=== PATIENT | male | born 1965 | race African-American/Black ===

== ENCOUNTER 2018-03-12 23:09 | Emergency (ER) | payer OTHER ==
[2018-03-13] MEDS ORDERED: DIAZEPAM 2 MG TABLET ONE (00:19)
--- NOTE | 2018-03-13 00:24 | ER ---
Nurse's Notes [facility] Name: Abhi Blankenship Age: 52 yrs Sex: Male : 1965 Arrival Date: 03/12/2018 Time: 23:15 Bed 16 Private MD: Earnest Forrest H Diagnosis: Radiculopathy, cervical region Presentation: 03/12 23:25 Presenting complaint: Patient states: Left shoulder pain for the past two days. Pain ao radiates down to the left hand. Patient also report numbness in the left hand. Patient denies nausea and vomiting. Transition of care: patient was not received from another setting of care. Onset of symptoms was March 10, 2018. Risk Assessment: Do you want to hurt yourself or someone else? Patient reports no desire to harm self or others. Initial Sepsis Screen: Does the patient meet any 2 criteria? No. Patient's initial sepsis screen is negative. Does the patient have a suspected source of infection? No. Patient's initial sepsis screen is negative. Care prior to arrival: None. 23:25 Method Of Arrival: Ambulatory ao 23:25 Acuity: JOAQUIN 4 ao Triage Assessment: 23:31 General: Appears in no apparent distress. comfortable, Behavior is calm, cooperative, ao appropriate for age. Pain: Complains of pain in left shoulder pain Pain radiates to left hand Pain currently is 7 out of 10 on a pain scale. Historical: - Allergies: 23:29 No Known Allergies; ao - Home Meds: 23:29 Metformin Oral [Active]; Glipizide Oral [Active]; atorvastatin oral oral [Active]; ao Zetia Oral [Active]; - PMHx: 23:29 Diabetes - NIDDM; Hyperlipidemia; ao - PSHx: 23:29 Knee surgery; ao - Immunization history:: Adult Immunizations up to date. - Social history:: Smoking status: Patient/guardian denies using tobacco, Patient uses alcohol, occasionally. Patient/guardian denies using street drugs, IV drugs. - Ebola Screening: : Patient negative for fever greater than or equal to 101.5 degrees Fahrenheit, and additional compatible Ebola Virus Disease symptoms Patient denies exposure to infectious person Patient denies travel to an Ebola-affected area in the 21 days before illness onset. Screenin:30 Abuse screen: Denies threats or abuse. Denies injuries from another. Nutritional ao screening: No deficits noted. Tuberculosis screening: No symptoms or risk factors identified. Fall Risk None identified. Assessment: 23:38 General: Appears in no apparent distress. comfortable, Behavior is calm, cooperative, ao appropriate for age. Pain: Complains of pain in Left shoulder radiating down to the left hand Pain currently is 7 out of 10 on a pain scale. Neuro: Level of Consciousness is awake, alert, obeys commands, Oriented to person, place, time, situation, Appropriate for age Moves all extremities. Full function Speech is normal, Facial symmetry appears normal. Cardiovascular: Reports None Denies chest pain, nausea, shortness of breath, vomiting. Respiratory: Airway is patent Respiratory effort is even, unlabored, Respiratory pattern is regular, symmetrical. GI: Abdomen is obese. : No signs and/or symptoms were reported regarding the genitourinary system. EENT: No signs and/or symptoms were reported regarding the EENT system. Derm: Skin is intact, Skin is normal, Skin temperature is warm. Musculoskeletal: Reports numbness in left hand pain in left shoulder. 03/13 00:23 Reassessment: Patient appears in no apparent distress at this time. Patient and/or jb4 family updated on plan of care and expected duration. Pain level reassessed. Patient is alert, oriented x 3, equal unlabored respirations, skin warm/dry/pink. Patient states feeling better. 00:34 Reassessment: Patient appears in no apparent distress at this time. Patient and/or jb4 family updated on plan of care and expected duration. Pain level reassessed. Patient is alert, oriented x 3, equal unlabored respirations, skin warm/dry/pink. Discussed D/c, F/u with pt and , denies questions or concerns at this time. Vital Signs: 03/12 23:26 BP 156 / 90; Pulse 79; Resp 18; Temp 98.3; Pulse Ox 99% on R/A; Weight 134.72 kg (R); ao Height 5 ft. 11 in. (180.34 cm) (R); Pain 12/10; 03/13 00:00 BP 135 / 86; Pulse 86; Resp 18; Pulse Ox 100% on R/A; jb4 03/12 23:26 Body Mass Index 41.42 (134.72 kg, 180.34 cm) ao ED Course: 03/12 23:15 Patient arrived in ED. es 23:16 Earnest Forrest DO is Private Physician. es 23:23 [facility]C [facility] snw 23:23 Jasvir Roberts MD is Attending Physician. snw 23:25 Sean Bustamante, RN is Primary Nurse. jb4 23:26 Triage completed. ao 23:27 Arm band placed on right wrist. Patient placed in an exam room, on a stretcher, on ao pulse oximetry, Patient notified of wait time. 23:30 Patient has correct armband on for positive identification. Pulse ox on. NIBP on. ao 23:48 EKG done, by ED staff, reviewed by Lily CAMARILLO. jb4 03/13 00:00 CT Head C Spine In Process Unspecified. EDMS 00:01 CT completed. Patient tolerated procedure well. Patient moved to CT via wheelchair. Patient moved back from CT. 00:24 Earnest Forrest DO is Referral Physician. snw 00:35 No provider procedures requiring assistance completed. Patient did not have IV access jb4 during this emergency room visit. Administered Medications: 00:18 Not Given (Patient Refused): Pingree 5 mg-325 mg 1 tabs PO once jb4 00:18 Drug: Valium 2 mg Route: PO; jb4 00:25 Follow up: Response: No adverse reaction; Pain is decreased; Anxiety decreased jb4 Point of Care Testing: Blood Glucose: 03/12 23:38 Blood Glucose: 120 mg/dL; ao Ranges: Outcome: 03/13 00:24 Discharge ordered by . snw 00:35 Discharged to home ambulatory. jb4 00:35 Condition: stable 00:35 Discharge instructions given to patient, family, Instructed on discharge instructions, follow up and referral plans. medication usage, Demonstrated understanding of instructions, follow-up care, medications, Prescriptions given X 2. 00:36 Patient left the ED. jb4 Signatures: Dispatcher [employer] EDID Lily Hopkins FNP-C FNP-Marjorie Doll Ervin eh Ortiz, Alex, RN RN ao Sean Bustamante, RN RN jb4
--- NOTE | 2018-03-13 00:25 | EDPHYS ---
Physician Documentation [facility] Name: Abhi lBankenship Age: 52 yrs Sex: Male : 1965 Arrival Date: 03/12/2018 Time: 23:15 Bed 16 Private MD: Earnest Forrest H ED Physician Jasvir Roberts HPI: 03/12 23:39 This 52 yrs old Black Male presents to ER via Ambulatory with complaints of Shoulder snw Pain. 23:39 The patient or guardian complains of pain, that is acute. left shoulder. Context: The snw problem was sustained at home, resulted from an unknown reason, The patient reports no decreased range of motion. The patient reports no obvious deformity. may have dislocated shoulder in the distant past. Onset: The symptoms/episode began/occurred gradually, 3 day(s) ago, and became persistent. Associated signs and symptoms: Pertinent negatives: chest pain, diaphoresis, dyspnea, Weakness in left elbow and anterior aspect of left shoulder and left hand. Severity of symptoms: At their worst the symptoms were moderate. It is unknown whether or not the patient has had similar symptoms in the past. The patient has been recently seen by a physician: the patient's primary care provider, Dr. Forrest with different complaint(s), Hgb A1C 9.1. Historical: - Allergies: 23:29 No Known Allergies; ao - Home Meds: 23:29 Metformin Oral [Active]; Glipizide Oral [Active]; atorvastatin oral oral [Active]; ao Zetia Oral [Active]; - PMHx: 23:29 Diabetes - NIDDM; Hyperlipidemia; ao - PSHx: 23:29 Knee surgery; ao - Immunization history:: Adult Immunizations up to date. - Social history:: Smoking status: Patient/guardian denies using tobacco, Patient uses alcohol, occasionally. Patient/guardian denies using street drugs, IV drugs. - Ebola Screening: : Patient negative for fever greater than or equal to 101.5 degrees Fahrenheit, and additional compatible Ebola Virus Disease symptoms Patient denies exposure to infectious person Patient denies travel to an Ebola-affected area in the 21 days before illness onset. ROS: 23:38 Constitutional: Negative for fever, chills, and weight loss, Eyes: Negative for injury, snw pain, redness, and discharge, ENT: Negative for injury, pain, and discharge, Neck: Negative for injury, pain, and swelling, Cardiovascular: Negative for chest pain, palpitations, and edema, Respiratory: Negative for shortness of breath, cough, wheezing, and pleuritic chest pain, Abdomen/GI: Negative for abdominal pain, nausea, vomiting, diarrhea, and constipation, Back: Negative for injury and pain, : Negative for injury, bleeding, discharge, and swelling, Skin: Negative for injury, rash, and discoloration, Neuro: Negative for headache, weakness, numbness, tingling, and seizure. 23:38 MS/extremity: Positive for tenderness, tingling, of the left elbow and anterior aspect of left shoulder and left hand. Exam: 23:38 Constitutional: This is a well developed, well nourished patient who is awake, alert, snw and in no acute distress. Head/Face: Normocephalic, atraumatic. Eyes: Pupils equal round and reactive to light, extra-ocular motions intact. Lids and lashes normal. Conjunctiva and sclera are non-icteric and not injected. Cornea within normal limits. Periorbital areas with no swelling, redness, or edema. ENT: Nares patent. No nasal discharge, no septal abnormalities noted. Tympanic membranes are normal and external auditory canals are clear. Oropharynx with no redness, swelling, or masses, exudates, or evidence of obstruction, uvula midline. Mucous membranes moist. Neck: Trachea midline, no thyromegaly or masses palpated, and no cervical lymphadenopathy. Supple, full range of motion without nuchal rigidity, or vertebral point tenderness. No Meningismus. Chest/axilla: Normal chest wall appearance and motion. Nontender with no deformity. No lesions are appreciated. Cardiovascular: Regular rate and rhythm with a normal S1 and S2. No gallops, murmurs, or rubs. Normal PMI, no JVD. No pulse deficits. Respiratory: Lungs have equal breath sounds bilaterally, clear to auscultation and percussion. No rales, rhonchi or wheezes noted. No increased work of breathing, no retractions or nasal flaring. Abdomen/GI: Soft, non-tender, with normal bowel sounds. No distension or tympany. No guarding or rebound. No evidence of tenderness throughout. Back: No spinal tenderness. No costovertebral tenderness. Full range of motion. Skin: Warm, dry with normal turgor. Normal color with no rashes, no lesions, and no evidence of cellulitis. Neuro: Awake and alert, GCS 15, oriented to person, place, time, and situation. Cranial nerves II-XII grossly intact. Motor strength 5/5 in all extremities. Sensory grossly intact. Cerebellar exam normal. Normal gait. Psych: Awake, alert, with orientation to person, place and time. Behavior, mood, and affect are within normal limits. 23:38 Musculoskeletal/extremity: Extremities: grossly normal except: noted in the anterior aspect of left shoulder, left hand and left elbow: tingling, ROM: intact in all extremities, limited active range of motion due to pain, in the anterior aspect of left shoulder, Circulation is intact in all extremities. Compartment Syndrome exam of affected extremity: is normal. 23:42 ECG was reviewed by the Attending Physician. snw Vital Signs: 23:26 BP 156 / 90; Pulse 79; Resp 18; Temp 98.3; Pulse Ox 99% on R/A; Weight 134.72 kg (R); ao Height 5 ft. 11 in. (180.34 cm) (R); Pain 12/10; 03/13 00:00 BP 135 / 86; Pulse 86; Resp 18; Pulse Ox 100% on R/A; jb4 03/12 23:26 Body Mass Index 41.42 (134.72 kg, 180.34 cm) ao MDM: 03/12 23:23 Patient medically screened. snw 03/13 00:24 Data reviewed: vital signs, nurses notes. Data interpreted: Pulse oximetry: on room air snw is 99 %. Interpretation: normal. Counseling: I had a detailed discussion with the patient and/or guardian regarding: the historical points, exam findings, and any diagnostic results supporting the discharge/admit diagnosis, the presence of at least one elevated blood pressure reading (>120/80) during this emergency department visit, radiology results, the need for outpatient follow up, to return to the emergency department if symptoms worsen or persist or if there are any questions or concerns that arise at home. Special discussion: I have referred the patient to see his PCP for further evaluation of high blood pressure. Based on the history and exam findings, there is no indication for further emergent testing or inpatient evaluation. I discussed with the patient/guardian the need to see the neurologist for further evaluation of the symptoms. I discussed with the patient/guardian the need to see the primary care provider for further evaluation of the symptoms. 03/12 23:32 Order name: CT Head C Spine snw 03/12 23:32 Order name: EKG; Complete Time: 23:33 snw 03/12 23:32 Order name: EKG - Nurse/Tech; Complete Time: 23:33 snw 03/12 23:32 Order name: FSBS; Complete Time: 23:38 snw EC/10 23:42 Rate is 68 beats/min. Rhythm is regular. QRS [place] is Normal. ND interval is normal. QRS snw interval is normal. QT interval is normal. No Q waves. Clinical impression: Normal ECG. Reviewed by me. Administered Medications: 03/13 00:18 Not Given (Patient Refused): [place] 5 mg-325 mg 1 tabs PO once jb4 00:18 Drug: Valium 2 mg Route: PO; jb4 00:25 Follow up: Response: No adverse reaction; Pain is decreased; Anxiety decreased jb4 Point of Care Testing: Blood Glucose: 03/12 23:38 Blood Glucose: 120 mg/dL; ao Ranges: Critical Glucose Levels:Adult <50 mg/dl or >400 mg/dl <40 mg/dl or >180 mg/dl Disposition: 03/13 06:39 Co-signature as Attending Physician, Jasvir Roberts MD I agree with the assessment and mali plan of care. Disposition: 03/13/18 00:24 Discharged to Home. Impression: Radiculopathy, cervical region. - Condition is Stable. - Discharge Instructions: Cervical Radiculopathy, Radicular Pain. - Prescriptions for Diclofenac Sodium 75 mg Oral Tablet Sustained Release - take 1 tablet by ORAL route 2 times per day; 30 tablet. orphenadrine citrate 100 mg Oral Tablet Sustained Release - take 1 tablet by ORAL route 2 times per day As needed; 20 tablet. - Work release form, Medication Reconciliation Form, Thank You Letter, Antibiotic Education, Prescription Opioid Use form. - Follow up: Earnest Forrest; When: 1 - 2 days; Reason: Recheck today's complaints, Continuance of care, Re-evaluation by your physician. Follow up: Emergency Department; When: As needed; Reason: Worsening of condition. Signatures: Dispatcher [employer] EDMS Jasvir Roberts MD MD cha Therrien, Shelly, INTERNAL MEDICINE PHYSICIAN-C INTERNAL MEDICINE PHYSICIAN-Csnw Farshad Short, RN RN Sean Mendez, GARRICK RN jb4 Corrections: (The following items were deleted from the chart) 00:36 00:24 03/13/2018 00:24 Discharged to Home. Impression: Radiculopathy, cervical region. jb4 Condition is Stable. Discharge Instructions: Cervical Radiculopathy, Radicular Pain. Prescriptions for Diclofenac Sodium 75 mg Oral Tablet Sustained Release - take 1 tablet by ORAL route 2 times per day; 30 tablet, orphenadrine citrate 100 mg Oral Tablet Sustained Release - take 1 tablet by ORAL route 2 times per day As needed; 20 tablet. and Forms are Work release form, Medication Reconciliation Form, Thank You Letter, Antibiotic Education, Prescription Opioid Use. Follow up: Earnest Forrest; When: 1 - 2 days; Reason: Recheck today's complaints, Continuance of care, Re-evaluation by your physician. Follow up: Emergency Department; When: As needed; Reason: Worsening of condition. snw
--- NOTE | 2018-03-13 08:49 | RAD REPORT ---
EXAM DESCRIPTION: CT - Head C Spine Mpr Wo Con - 03/13/2018 2:52 am CLINICAL HISTORY: Head and neck injury status post fall. Left arm radiculopathy COMPARISON: None. TECHNIQUE: Computed axial tomography of the head and cervical spine was obtained. Sagittal and coronal reconstruction was performed.Preliminary report was generated by [employer] [facility] and reviewed prior to dictation All CT scans are performed using dose optimization technique as appropriate and may include automated exposure control or mA/KV adjustment according to patient size. FINDINGS: An intracranial bleed is not seen. The ventricles are normal in caliber. An extra-axial fl uid collection is not noted.Fluid within the visualized sinuses and mastoids is not seen A cervical fracture is not visualized. No dislocation is noted. Spondylosis C4-5 results in marked ri ght foraminal stenosis. Mild to moderate central spinal stenosis is present as well. There may be a s mall right paracentral disc herniation present IMPRESSION: No acute intracranial abnormality is seen. A cervical fracture is not visualized. Spondylosis with possible small right paracentral disc herniation C4-5 resulting in marked right fora edgardo stenosis and mild to moderate central spinal stenosis If the patient continues to have symptoms to suggest intracranial /spinal cord/canal pathology then M RI would be recommended
--- NOTE | 2018-03-13 09:07 | EKG ---
Test Date: 2018-03-12 Test Time: 23:37:52 Rotary Cutter: FERNANDO MEASUREMENT RESULTS: Intervals: Rate: 68 DE: 174 QRSD: 100 QT: 398 QTc: 423 [place]: P: 29 DE: 174 QRS: -8 T: 7 INTERPRETIVE STATEMENTS: Normal sinus rhythm Minimal voltage criteria for LVH, may be normal variant Borderline ECG Compared to ECG 06/22/2000 08:16:00 Left ventricular hypertrophy now present T-wave abnormality no longer present Electronically Signed On 03-13-18 09:07:05 CDT by Miles Bae
== END 2018-03-13 00:36 | disposition home or self-care (01) ==
LOC: ER 23:09
DX: M54.12 Radiculopathy, cervical region (principal); E11.9 Type 2 diabetes mellitus without complications; E78.5 Hyperlipidemia, unspecified
CPT/HCPCS: 70450; 72125; 82962; 93005; 99284